=== PATIENT | male | born 1970 | race Caucasian/White ===

== ENCOUNTER → 2016-10-11 | Outpatient (CLI) | payer BC | END | disposition home or self-care (01) | LOC: GMAB 10:24 | PROVIDERS: ATTEND Family Medicine | DX: Z00.00 Encounter for general adult medical examination without abnormal findings (principal) ==

== ENCOUNTER → 2016-11-02 | Outpatient (CLI) | payer BC | END | disposition home or self-care (01) | LOC: GMAB 10:43 | PROVIDERS: ATTEND Family Medicine | DX: M71.9 Bursopathy, unspecified (principal) ==

== ENCOUNTER 2017-03-05 12:54 | Emergency (ER) | payer BC ==
[2017-03-05 13:35] VITALS: BP 155/89; TEMP 98.8; O2SAT 97
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
--- NOTE | 2017-03-05 14:26 | RAD ---
EXAM DESCRIPTION: Shoulder,Right 2 or More Views CLINICAL HISTORY: 46 years Male, pressure related injury COMPARISON: None. FINDINGS: 2 views of the right shoulder show no acute fracture or malalignment. The right AC joint is unremarkable. No apparent right-sided rib fracture. IMPRESSION: Negative exam. Electronically signed by: Gerry Barger MD 03/05/2017 2:24 PM CDT Workstation: [id number]
[2017-03-05] MEDS ORDERED: CHLORHEXIDINE GLUCONATE 4 % 15 ML UD TOP ONE (14:33)
[2017-03-05] MEDS ORDERED: TETANUS,DIPHTHERIA,PERTUSSIS 1 EA SYG IM ONE (15:14)
== END 2017-03-05 15:35 | disposition home or self-care (01) ==
LOC: ER 12:54
DX: S51.821A Laceration with foreign body of right forearm, initial encounter (principal); I10 Essential (primary) hypertension; Z23 Encounter for immunization; W33.19XA Accidental malfunction of other larger firearm, initial encounter; Y92.9 Unspecified place or not applicable

== ENCOUNTER → 2020-02-17 | Outpatient (CLI) | payer SELFPAY | LOC: YCFC.O 09:30 | PROVIDERS: ATTEND Family Medicine | DX: Z20.828 Contact with and (suspected) exposure to other viral communicable diseases (principal) ==